=== PATIENT | male | born 1945 | race Caucasian/White ===

== ENCOUNTER 2018-05-01 01:50 | Inpatient (IN) ==
[2018-05-01] MEDS ORDERED: Acetaminophen 325 MG Tablet PO PRN (10:15)
[2018-05-01] MEDS ORDERED: Enoxaparin Inj 30 MG/0.3 ML Syringe SQ SCH (10:15)
[2018-05-01 10:42] LABS: Hematocrit 42.2 % (39.0-51.0); Hemoglobin 14.7 gm/dL (13.0-17.0); Mean Corpuscular HGB Conc 34.9 % (32.0-36.0); Mean Corpuscular Volume 91.9 fL (80.0-100.0); Mean Platelet Volume 8.5 fL (7.0-11.0); Platelet Count 158 th/mm3 (150-450); Red Blood Count 4.59 mil/mm3 (4.50-5.90); Red Cell Distribution Width 13.6 % (11.6-17.2); White Blood Count 7.5 th/mm3 (4.0-11.0)
[2018-05-01 11:07] LABS: Calcium 7.9 mg/dL (8.5-10.1); Carbon Dioxide 25.7 meq/L (21.0-32.0); Potassium 3.6 meq/L (3.5-5.1)
[2018-05-01 11:23] LABS: Troponin I 1.12 ng/mL (0.02-0.05)
--- NOTE | 2018-05-01 12:00 | P.HPIM ---
History of Present Illness Primary Care Physician: Tasneem Dumont Chief Complaint: chest pain History of Present Illness: This is a 73/M with h/o DM, hyperlipidemia who presented to the ED for chest pain. He was recently prescribed Diclofenac by his PCP which he filled yesterday. He took it prior to dinner. An hour after dinner, he started having lightheadedness, severe itching and started sweating profusely. He went to the ED, was given Benadryl. Workup was negative, symptoms resolved completely and hence patient was discharged. There was no note of chest pain at that point. Patient went home, watching TV in bed, around 11 pm, he started having pressure- like chest pain, substernal, radiating to the back between his shoulder blades, severe, about 8-9, lasted for about 2 hours, relieved by nitroglycerin given at the ED associated with pallor. No note of palpitations or SOB. Before going to the ED, he took his BP and it was 60/50. Presently, he denies any chest pain. 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 Of note, a month ago, he had a cardiac workup with what sounds to be EKG, nuclear stress test and a treadmill stress test which were all allegedly negative. Family Hx:Brother had a massive heart attack at early 50s and . Patient smokes 3-4 cigarettes since 14 yo. Review of Systems The All other pertinent systems were reviewed and are negative. [facility] - History History Provided By: Patient - Medical History Medical History: Medical History (Last Reviewed 05/01/18 @ 12:04 by Audie Toledo MD) Diabetes - Surgical History Surgical History: Surgical History (Last Updated 05/01/18 @ 12:03 by Audie Toledo MD) History of appendectomy History of knee surgery History of tonsillectomy No history of previous surgery - Tobacco History Second Hand Smoke Exposure: No Tobacco Use In Past 30 Days: Yes Smoking Status: Current some day smoker Tobacco Type: Cigarettes - Alcohol History How Often Do You Have a Drink Containing Alcohol: Never - Substance Use History Substance History: No History of Abuse - Travel History Recent Travel in the [facility] Within the Last 8 Weeks: No Recent Travel Out of the Country Within the Last 8 Weeks: No Medications and Allergies Active Medications: Active Medications Acetaminophen (Tylenol) 650 mg PO Q4H PRN PRN Reason: Temp > 100.4 Al Hydroxide/Mg Hydroxide (Milk Of Vasile Almeida) 30 ml PO Q12H PRN PRN Reason: Mild Constipation Enoxaparin Sodium (Lovenox Inj) 30 mg SQ Q24H TATYANA Last Admin: 05/01/18 10:46 Dose: 30 mg Ondansetron HCl (Zofran Inj) 4 mg IV.PUSH Q6H PRN PRN Reason: NAUSEA OR VOMITING Sennosides (Senokot) 17.2 mg PO Q12H PRN PRN Reason: Moderate Constipation Allergies Allergy/AdvReac Type Severity Reaction Status Date / Time No Known Allergies Allergy Unverified 04/30/18 21:14 Home Medications Medication Instructions Recorded Confirmed Type insulin asp prt-insulin aspart 25 unit SUB-Q BID 04/30/18 05/01/18 History [Novolog Mix 70-30 U-100 Insuln] lisinopril 5 mg PO DAILY 04/30/18 05/01/18 History simvastatin 20 mg PO QPM 04/30/18 05/01/18 History Exam Vital signs: Vital Signs 05/01/18 08:13 Temperature 98.3 F Pulse Rate 75 Respiratory Rate 16 Blood Pressure 121/69 Pulse Oximetry 94 L Intake & Output 04/30/18 05/01/18 05/01/18 18:59 06:59 18:59 Weight 125.191 kg Other: Date of Last Bowel Movement 04/30/18 Weight On Admission 125.191 kg Narrative: GENERAL: Not in acute distress, well-nourished. HEAD: Atraumatic. Normocephalic. No temporal or scalp tenderness. EYES: PERRL, full EOMs, no jaundice, nonicteric, pink conjunctivae without injection, moist mucosa ENT: Nose without bleeding, purulent drainage. NECK: Trachea midline, no mass, no obvious thyromegaly. CARDIOVASCULAR: Regular rate and rhythm without murmurs, gallops, or rubs. RESPIRATORY: Clear to auscultation with normal respiratory effort. Breath sounds equal bilaterally. No use of accessory muscles of respiration. GASTROINTESTINAL: Abdomen soft, normal bowel sounds, non-tender, nondistended. No hepato-splenomegaly or palpable mass. No guarding. TAWANDA and exam deferred. MUSCULOSKELETAL: Extremities without clubbing, cyanosis, or edema. No joint tendernes. No calf tenderness. Distal pulses intact, 2+ bilaterally. INTEGUMENTARY: Warm and dry, no rash of generalized distribution. NEUROLOGICAL: Awake, alert, oriented 3. No obvious cranial nerve deficits. Moves all 4 extremities, muscle strength testing 5 over 5. Motor and sensory grossly within normal limits.No focal neurologic deficits. Results - Labs CBC & Chem 7: 05/01/18 10:30 05/01/18 10:30 Labs: Short CBC 05/01/18 Range/Units 10:30 WBC 7.5 (4.0-11.0) th/mm3 Hgb 14.7 D (13.0-17.0) gm/dL Hct 42.2 (39.0-51.0) % Plt Count 158 D (150-450) th/mm3 BMP 05/01/18 10:30 Sodium 142 Potassium 3.6 Chloride 106 Carbon Dioxide 25.7 BUN 19 H Creatinine 1.01 Calcium 7.9 L D Cardiac Enzymes 05/01/18 Range/Units 10:30 Total Creatine Kinase 210 (39-308) U/L Troponin I 1.12 H* (0.02-0.05) ng/mL Caprini VTE Risk Assessment Caprini VTE Risk Assessment: Moderate/High Risk (score >= 2) Caprini Risk Assessment Model: Point Value = 1 Point Value = 2 Point Value = 3 Point Value = 5 Age 41-60 Minor surgery BMI > 25 kg/m2 Swollen legs Varicose veins or History of unexplained or recurrent spontaneous Oral contraceptives or hormone replacement Sepsis (< 1 month) Serious lung disease, including pneumonia (< 1 month) Abnormal pulmonary function Acute myocardial infarction Congestive heart failure (< 1 month) History of inflammatory bowel disease Medical patient at bed rest Age 61-74 Arthroscopic surgery Major open surgery (> 45 min) Laparoscopic surgery (> 45 min) Malignancy Confined to bed (> 72 hours) Immobilizing plaster cast Central venous access Age >= 75 History of VTE Family history of VTE Factor V Leiden Prothrombin [id number] Lupus anticoagulant Anticardiolipin antibodies Elevated serum homocysteine Heparin-induced thrombocytopenia Other congenital or acquired thrombophilia Stroke (< 1 month) Elective arthroplasty Hip, pelvis, or leg fracture Acute spinal cord injury (< 1 month) Prophylaxis Regimen: Total Risk Factor Score Risk Level Prophylaxis Regimen 0-1 Low Early ambulation 2 Moderate Order ONE of the following: *Sequential Compression Device (SCD) *Heparin 5000 units SQ BID 3-4 Higher Order ONE of the following medications: *Heparin 5000 units SQ TID *Enoxaparin/Lovenox 40 mg SQ daily (WT < 150 kg, CrCl > 30 mL/min) *Enoxaparin/Lovenox 30 mg SQ daily (WT < 150 kg, CrCl > 10-29 mL/min) *Enoxaparin/Lovenox 30 mg SQ BID (WT < 150 kg, CrCl > 30 mL/min) AND/OR *Sequential Compression Device (SCD) 5 or more Highest Order ONE of the following medications: *Heparin 5000 units SQ TID (Preferred with Epidurals) *Enoxaparin/Lovenox 40 mg SQ daily (WT < 150 kg, CrCl > 30 mL/min) *Enoxaparin/Lovenox 30 mg SQ daily (WT < 150 kg, CrCl > 10-29 mL/min) *Enoxaparin/Lovenox 30 mg SQ BID (WT < 150 kg, CrCl > 30 mL/min) AND *Sequential Compression Device (SCD) Assessment and Plan - Plan This is a 73-year-old male with history of diabetes mellitus and hyperlipidemia presenting with chest pain NSTEMI -chest pain sounds cardiac, first troponin is positive, EKG is unremarkable, no ischemic changes, SR. Start heparin drip, consult cardiology, start aspirin, restart statin, nitroglycerin as needed, morphine as needed, oxygen, n.p.o. for now, might need cardiac catheterization, NPO for now. Patient recently had a negative cardiac workup including a stress test and <?> Nuclear stress test. Serial troponin, serial EKG. Chest x-ray unremarkable. CTA negative for PE, showed coronary calcifications. Diabetes mellitus-sliding scale insulin for now while n.p.o., restart home insulin once eating, monitor. Dyslipidemia-restart statin Bilateral pulmonary nodules-repeat CT scan as outpatient in 6 months. Diclofenac allergy-resolved. ? Hypertension-restart lisinopril DVT prophylaxis: Heparin H&P: Quality - VTE Deep Vein Thrombosis/Pulmonary Embolism Present on Admission: No
[2018-05-01] MEDS ORDERED: Heparin Drip 25,000 UNIT/250 ML BAG IV.CONT PRN (12:15)
[2018-05-01] MEDS ORDERED: Heparin 10,000 UNITS/10 ML Vial (for IV use) IV.PUSH STA (12:15)
[2018-05-01] MEDS ORDERED: Dextrose 50% in Water 50 ML Vial IV.PUSH PRN (12:19)
[2018-05-01] MEDS ORDERED: Morphine Inj 4 MG/ML Vial IV.PUSH PRN (12:23)
[2018-05-01 13:59] LABS: Activated Partial Thrombo Time 22.9 sec (24.3-30.1); Prothrombin Time 10.3 sec (9.8-11.6)
[2018-05-01] MEDS: Lisinopril 5 MG Tablet PO SCH (14:07)
--- NOTE | 2018-05-01 15:36 | ECG ---
Date Performed: 05/01/2018 Time Performed: 10:52:02 PTAGE: 73 years EKG: Sinus rhythm NORMAL ECG Since PREVIOUS TRACING , no significant change noted PREVIOUS TRACIN05/01/2018 01.56 DOCTOR: Eliel Bonilla Interpretating Date/Time 05/01/2018 15:36:34
[2018-05-01 17:33] LABS: Hematocrit 43.3 % (39.0-51.0); Mean Corpuscular HGB Conc 34.6 % (32.0-36.0); Mean Corpuscular Hemoglobin 31.9 pg (27.0-34.0); Mean Corpuscular Volume 92.1 fL (80.0-100.0); Mean Platelet Volume 8.6 fL (7.0-11.0); Platelet Count 157 th/mm3 (150-450); Red Cell Distribution Width 13.7 % (11.6-17.2); White Blood Count 7.8 th/mm3 (4.0-11.0)
[2018-05-01] MEDS: Insulin NovoLOG Aspart Correctional Sugar Inj SQ SCH ×2 (18:31→21:52)
[2018-05-01 18:45] LABS: Troponin I 3.44 ng/mL (0.02-0.05)
[2018-05-02 05:27] LABS: Baso # (Auto) 0.1 th/mm3 (0.0-0.2); Baso % (Auto) 0.8 % (0.0-2.0); Eos # (Auto) 0.3 th/mm3 (0.0-0.4); Eos % (Auto) 5.1 % (0.0-4.0); Hematocrit 41.6 % (39.0-51.0); Hemoglobin 14.8 gm/dL (13.0-17.0); Lymph # (Auto) 1.1 th/mm3 (1.0-4.8); Lymph % (Auto) 16.1 % (9.0-44.0); Mean Corpuscular HGB Conc 35.6 % (32.0-36.0); Mean Corpuscular Hemoglobin 32.3 pg (27.0-34.0); Mean Corpuscular Volume 90.6 fL (80.0-100.0); Mean Platelet Volume 8.9 fL (7.0-11.0); Mono # (Auto) 0.5 th/mm3 (0.0-0.9); Mono % (Auto) 6.9 % (0.0-8.0); Neut # (Auto) 4.8 th/mm3 (1.8-7.7); Neut % (Auto) 71.1 % (16.0-70.0); Platelet Count 159 th/mm3 (150-450); Red Blood Count 4.59 mil/mm3 (4.50-5.90); Red Cell Distribution Width 13.5 % (11.6-17.2); White Blood Count 6.7 th/mm3 (4.0-11.0)
[2018-05-02 05:47] LABS: Calcium 8.2 mg/dL (8.5-10.1); Carbon Dioxide 25.4 meq/L (21.0-32.0); Potassium 3.7 meq/L (3.5-5.1)
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
[2018-05-02 06:09] LABS: Troponin I 3.88 ng/mL (0.02-0.05)
[2018-05-02] MEDS: Lisinopril 5 MG Tablet PO SCH (08:15)
[2018-05-02] MEDS: Insulin NovoLOG Aspart Correctional Sugar Inj SQ SCH ×4 (08:16→22:44)
--- NOTE | 2018-05-02 09:59 | P.PNIM ---
Subjective Interval history: Follow-up for chest pain No chest pain overnight, no palpitations. Also complaining of diarrhea which has been going on for the last 2 weeks, no recent antibiotic use. No abdominal pain, melena, hematochezia, nausea or vomiting. Physical Exam Vital signs: Vital Signs 05/01/18 12:00 05/01/18 17:25 05/01/18 20:00 Temperature 98.7 F 98.6 F 98.9 F Pulse Rate 85 89 82 Respiratory Rate 16 18 18 Blood Pressure 120/67 136/70 142/72 H Pulse Oximetry 93 L 93 L 93 L 05/01/18 20:30 05/01/18 23:29 05/02/18 00:10 Temperature 98.2 F Pulse Rate 78 83 82 Respiratory Rate 18 Blood Pressure 130/66 Pulse Oximetry 95 05/02/18 08:00 05/02/18 08:54 Temperature 98.4 F Pulse Rate 72 86 Respiratory Rate 18 Blood Pressure 122/66 Pulse Oximetry 93 L Intake & Output 05/01/18 05/02/18 05/02/18 18:59 06:59 18:59 Weight 128.2 kg Other: # Voids 2 Date of Last Bowel Movement 05/01/18 05/01/18 05/02/18 Weight On Admission 125.191 kg Narrative: GENERAL: Not in acute distress, well-nourished. CARDIOVASCULAR: Regular rate and rhythm without murmurs, gallops, or rubs. RESPIRATORY: Clear to auscultation with normal respiratory effort. Breath sounds equal bilaterally. No use of accessory muscles of respiration. GASTROINTESTINAL: Abdomen soft, normal bowel sounds, non-tender, nondistended. MUSCULOSKELETAL: Extremities without clubbing, cyanosis, or edema. NEUROLOGICAL: Awake, alert, oriented 3. No obvious cranial nerve deficits. Moves all 4 extremities, muscle strength testing 5 over 5. Motor and sensory grossly within normal limits.No focal neurologic deficits. Results - Labs CBC & Chem 7: 05/02/18 04:15 05/02/18 04:15 Laboratory Results - last 24 hr 05/01/18 05/01/18 05/01/18 10:30 10:30 13:30 WBC 7.5 RBC 4.59 Hgb 14.7 D Hct 42.2 MCV 91.9 MCH 32.0 MCHC 34.9 RDW 13.6 Plt Count 158 D MPV 8.5 Neut % (Auto) Lymph % (Auto) Drew % (Auto) Eos % (Auto) Baso % (Auto) Neut # (Auto) Lymph # (Auto) Drew # (Auto) Eos # (Auto) Baso # (Auto) WBC Differential Differential Comment PT INR APTT D-Dimer Quant (PE/DVT) 3.84 H Sodium 142 Potassium 3.6 Chloride 106 Carbon Dioxide 25.7 Anion Gap 10 BUN 19 H Creatinine 1.01 Estimated GFR 73 L POC Glucose Random Glucose 206 H Calcium 7.9 L D Total Creatine Kinase 210 Troponin I 1.12 H* Lipase 472 H 05/01/18 05/01/18 05/01/18 13:30 17:00 17:00 WBC 7.8 RBC 4.70 Hgb 15.0 Hct 43.3 MCV 92.1 MCH 31.9 MCHC 34.6 RDW 13.7 Plt Count 157 MPV 8.6 Neut % (Auto) Lymph % (Auto) Drew % (Auto) Eos % (Auto) Baso % (Auto) Neut # (Auto) Lymph # (Auto) Drew # (Auto) Eos # (Auto) Baso # (Auto) WBC Differential Differential Comment PT 10.3 INR 1.0 APTT 22.9 L D-Dimer Quant (PE/DVT) Sodium Potassium Chloride Carbon Dioxide Anion Gap BUN Creatinine Estimated GFR POC Glucose Random Glucose Calcium Total Creatine Kinase 301 Troponin I 3.44 H* Lipase 05/01/18 05/01/18 05/01/18 18:19 19:00 21:46 WBC RBC Hgb Hct MCV MCH MCHC RDW Plt Count MPV Neut % (Auto) Lymph % (Auto) Drew % (Auto) Eos % (Auto) Baso % (Auto) Neut # (Auto) Lymph # (Auto) Drew # (Auto) Eos # (Auto) Baso # (Auto) WBC Differential Differential Comment PT INR APTT 26.0 D-Dimer Quant (PE/DVT) Sodium Potassium Chloride Carbon Dioxide Anion Gap BUN Creatinine Estimated GFR POC Glucose 315 H 271 H Random Glucose Calcium Total Creatine Kinase Troponin I Lipase 05/02/18 05/02/18 05/02/18 04:15 04:15 07:54 WBC 6.7 RBC 4.59 Hgb 14.8 Hct 41.6 MCV 90.6 MCH 32.3 MCHC 35.6 RDW 13.5 Plt Count 159 MPV 8.9 Neut % (Auto) 71.1 H Lymph % (Auto) 16.1 Drew % (Auto) 6.9 Eos % (Auto) 5.1 H Baso % (Auto) 0.8 Neut # (Auto) 4.8 Lymph # (Auto) 1.1 Drew # (Auto) 0.5 Eos # (Auto) 0.3 Baso # (Auto) 0.1 WBC Differential . Differential Comment Auto diff final PT INR APTT D-Dimer Quant (PE/DVT) Sodium 143 Potassium 3.7 Chloride 107 Carbon Dioxide 25.4 Anion Gap 11 BUN 13 Creatinine 0.91 Estimated GFR 82 L POC Glucose 303 H Random Glucose 236 H Calcium 8.2 L Total Creatine Kinase Troponin I 3.88 H* Lipase Microbiology 05/01/18 18:15 Stool Stool Occult Blood (BARNEY) - Final Hemoccult negative Assessment and Plan - Plan This is a 73-year-old male with history of diabetes mellitus and hyperlipidemia presenting with chest pain NSTEMI -chest pain sounds cardiac, troponin peaked at 3.88. EKG is unremarkable , no ischemic changes, SR. continue heparin drip, discussed with Dr. Matehws yesterday. Continue aspirin, restart statin, nitroglycerin as needed, morphine as needed, oxygen, for cardiac catheterization today. Chest x-ray unremarkable. CTA negative for PE, showed coronary calcifications. Start Coreg per cardiology, discussed with Dr. Mathews. Diabetes mellitus-sliding scale insulin for now while n.p.o., restart home insulin after procedure. Dyslipidemia-continue statin Bilateral pulmonary nodules-repeat CT scan as outpatient in 6 months. Diarrhea -diarrhea for 2 weeks, no abdominal pain, no leukocytosis, no hematochezia or melena, C diff pending. Doubt C. difficile, check ova and parasites. Diclofenac allergy-resolved. ? Hypertension- lisinopril DVT prophylaxis: Heparin
[2018-05-02] MEDS ORDERED: Heparin/NS PF Inj 500 ML ONE (10:02)
[2018-05-02] MEDS ORDERED: fentaNYL Citrate Inj 100 MCG/2 ML Ampul ONE ×2 (10:25→11:04)
[2018-05-02] MEDS ORDERED: Tirofiban Inj 12,500 MCG/250 ML PLAST..BAG ONE (11:07)
--- NOTE | 2018-05-02 11:17 | CATHPROC ---
[place] HIS Report Study Information Study Number Admission Scheduled Start Study Start [id number] May 01 2018 7:55AM 05/02/2018 May 02 2018 9:55AM [place] [facility] Cardiac Catheterization Admit Source Facility Department Emergency department [facility] - Chief Information Officer Physician and Clinical Staff Initial Ajay [place] Bailiff Amaury Mccormick,SCOT[place] Bailiff Yaa Munson,SCOTTY Recorder Khalida Tovar,RT(R) Scrub Otilio Cortes RCIS(BS) Procedures Performed Procedure Location (Site) Vessel Name Coronary Angiograms LCA Left Coronary Coronary Angiograms RCA Right Coronary L Heart Cath PTCA RCA Dist Right Coronary PTCA ADD ON'S Stent RCA Dist Right Coronary Wire insertion Fem Art (right) Femoral Art Equipment Time Mine Inspector Description Size Mfg Part Number Used/Scraped [id number] 10:49 [employer] WIRE, ASAHI GRANDSLAM 180CM 180CM Used *[id number] 62914-08 10:41 [employer] WIRE, ASAHI PROWATER 180CM 180CM Used *[id number] TRANSDUCER, TRUWAVE [id number] 10:26 DOMINGUEZ MARSHALL * Used W/STOCKCOCK *[id number] 538-420 *[id number] 538-422 *[id number] 538-424 *[id number] [id number] *2765984 538-421 *[id number] 538-453S *[id number] 10:26 [employer] BLANKET,WARM AIR CCL * Used *[id number] 10:26 [employer] PACK, CCL CUSTOM * Used *[id number] 10:26 [employer] PACER PEN, SKIN DUAL W/ RULER * Used *[id number] 10:49 [employer] BALLOON, 3.0 X 10MM EUPHORA 10MM Used *[id number] BALLOON, 3.5 X 20MM NC [id number] 10:57 MEDTRONIC 20MM Used EUPHORA *[id number] 10:45 [employer]TR[employer]IC STENT, 3.5 18 INTEGRITY 3.5 18 Used *[id number] [id number] 10:42 Zaask 30 HEVER INDEFLATOR Used *[id number] 10:33 [email or web address] MEDICAL SHEATH, FR6.5 PRELUDE 11CM FR 6.5 038ACT Used *[id number] 10:26 [employer] MEDICAL WIRE, 3MMJ .035 180CM 180CM Used *[id number] 10:26 NAMIC MANIFOLD, 4 PORT * Used *[id number] 10:26 NYCOMED OMNIPAQUE, 350 MG, 150ML 150ML [id number] Used 10:42 NYCOMED OMNIPAQUE, 350 MG, 50ML 50ML [id number] Used [id number] 10:26 TERUMO MEDICAL SHEATH, FR4 TERUMO (10CM) FR 4 Used *[id number] Equipment Model, Serial, Lot Number and Expiration Data Description Model Number Serial Number Lot Number Expiration Date BALLOON, 3.5 X 20MM MT [id number] 10-23-2019 EUPHORA STENT, 3.5 18 INTEGRITY [id number] 06-16-2019 History: Current Medications Medication Dosage/Unit Route Frequency Last Date/Time Taken Statins (any) LISINOPRIL Insulin HEPARIN LOVENOX History: Allergies Allergy Reaction No Known Allergies History: Risk Factors Family History of Hypertension Dyslipidemia Previous CT Previous Heart Failure Premature CAD Yes Yes No No No Prior Valve Prior PCI Prior CABG Surgery No No No Cerebrovascular Peripheral Artery Chronic Lung On Dialysis Diabetes Diabetes Therapy Disease Disease Disease No No No No Yes Oral History: Stress Tests Stress or Imaging Studies Performed No History: Other Current Smoker No Labs Hgb (g/dl) Hct (%) WBC (l/cumm) Platelets (thousands) 11.60-17.00 35.00-51.00 4.00-11.00 150.00-450.00 14.7 42.2 7.5 158 Na (meq/l) K (meq/l) Cl (meq/l) CO2 (mmol/L) Ca (mg/dl) 136.00-145.00 3.50-5.10 98.00-107.00 21.00-32.00 8.50-10.10 142 3.6 106 25.7 7.9 Troponin I (ng/ml) CPK (u/l) CPK-MB (ng/ML) 0.02-0.05 26.00-308.00 0.50-3.60 1.12 210 Not Drawn Medication Medication Total Dose (Bolus/Oral) Medication Total Dosage/Unit 1% XYLOCAINE 20 mL AGGRASTAT BOLUS 64 meq/kg EFFIENT 60 mg FENTANYL 75 mcg HEPARIN 57313 units VERSED 1 mg Medications (Bolus/Oral) Medication Time Given Dosage/Unit Administered By Reason 1% XYLOCAINE 05/02/2018 10:25:46 AM 20 mL Ajay Mathews 20 mL 1% XYLOCAINE given in lab by Ajay Mathews in Right Groin via Subcutaneous. VERSED 05/02/2018 10:27:03 AM 1 mg Yaa Munson 1 mg VERSED given in lab by Yaa Munson RN via Peripheral IV. FENTANYL 05/02/2018 10:27:09 AM 50 mcg Yaa Munson 50 mcg FENTANYL given in lab by Yaa Munson RN via Peripheral IV. HEPARIN 05/02/2018 10:43:17 AM 9000 units Amaury Mccormick 9000 units HEPARIN given in lab by Amaury Mccormick RN via Peripheral IV. FENTANYL 05/02/2018 11:03:56 AM 25 mcg Yaa Munson 25 mcg FENTANYL given in lab by Yaa Munson RN via Peripheral IV. HEPARIN 05/02/2018 11:07:45 AM 3000 units Amaury Mccormick 3000 units HEPARIN given in lab by Amaury Mccormick RN via Peripheral IV. AGGRASTAT BOLUS 05/02/2018 11:10:10 AM 64 meq/kg Yaa Munson 64 meq/kg AGGRASTAT BOLUS given in lab by Yaa Munson RN via Peripheral IV. Amount given = 8204.8 meq. EFFIENT 05/02/2018 11:11:17 AM 60 mg Yaa Munson 60 mg EFFIENT given in lab by Yaa Munson RN via Oral. Medication (Drip) Medication Time Given Dosage/Unit Concentration/Unit Diluent (ml) Solution AGGRASTAT DRIP 05/02/2018 11:10:14 AM 0.15 mcg/kg/min 12.5 mg 250 NaCl .9 0.15 mcg/kg/min AGGRASTAT DRIP given in lab by Yaa Munson RN via Peripheral IV. Pump/Drip Flow = 23 ml/hr using NaCl .9 with a concentration of 12.5 mg in 250 ml. IV Solutions 05/02/2018 10:10:23 AM 0 mL (IV) 500 NaCl .9 Patient arrived on IV Solutions in Left Antecubital via Peripheral IV. Pump/Drip Flow = 20 ml/hr usin g NaCl .9. Initial Case Assessment Cardiovascular HR Rhythm Chest Pain 80 reg 0 Edema Present Skin color Skin None Normal Warm Circulatory - Right Pulses Dorsalis Pedis Femoral 1 2 Scale (0,1,2,3,4,d) Circulatory - Left Pulses Dorsalis Pedis Femoral 1 2 Scale (0,1,2,3,4,d) Circulatory - Lower Extremities Color Lower Right Color Lower Left Normal Normal Neurological State Oriented to time-place- Alert Moves all extremities person Respiration - General Respiration Rate SpO2 (%) O2 (lpm) (B/min) 26 94 0 Final Case Assessment Cardiovascular HR Rhythm NIBP Chest Pain 80 reg 174/89 0 Edema Present Skin color Skin None Normal Warm Circulatory - Right Pulses Dorsalis Pedis Femoral 1 2 Scale (0,1,2,3,4,d) Circulatory - Left Pulses Dorsalis Pedis Femoral 1 2 Scale (0,1,2,3,4,d) Circulatory - Lower Extremities Color Lower Right Color Lower Left Normal Normal Neurological State Oriented to time-place- Alert Moves all extremities person Respiration - General Respiration Rate SpO2 (%) (B/min) 11 94 Chronological Log Time Study Chronological Log 10:10:05 Patient Name, D.O.B, / Armband Verified By R.N. 10:10:14 Consent signed by the physician and the patient and verified by the Chief Information Officer staff. 10:10:15 Pre-op and post- op instructions given; patient acknowledges understanding of instructions. 10:10:16 Verbal Stimulation=2 Physical Stimulation=2 Airway=2 Respiration=2 TOTAL=8. (0=absent, 1=li mited, 2=present) 10:10:17 Patient has been NPO for More than 6Hrs. 10:10:18 Skin Breakdown-none 10:10:21 A # 20 IV was noted in the Antecubital (left). Grade = 0 10:10:23 Patient arrived on IV Solutions in Left Antecubital via Peripheral IV. Pump/Drip Flow = 20 ml/hr using NaCl .9. 10:10:23 History and physical on the chart or being dictated. Assessment: Initial Case, HR=80 BPM, Rhythm=reg, Chest Pain=0, Edema=None, Color=Normal, Skin = Warm Right Pulses: Boaz Ped=1, Femoral=2 Left Pulses: Boaz Ped=1, Femoral=2 10:10:24 Lower Right Extremities: Color=Normal Lower Left Extremities: Color=Normal Neurological: State=Alert, Ox3, SANDOVAL Respiration: Resp=26 B/min, SpO2=94 %, O2=0 lpm Vitals capture started with the following parameters, Patient=Adult, Interval=3 min, Initial Pr giwhtg=302 mmHg, 10:18:13 Deflation Rate=5 mmHg, Cuff placed on Left Arm 10:18:54 HR=83 bpm, RHVX=861/87 mmhg, SpO2=94.0 %, Resp=21 B/min, Pain=0, Darnell=10, Casillas=2 10:21:54 HR=76 bpm, SBLJ=837/86 mmhg, SpO2=94.0 %, Resp=31 B/min, Pain=0, Darnell=10, Casillas=2 10:22:54 MD arrived. 10:24:05 Pressure channel 1 zeroed. 10:24:11 Reference ECG taken Time Out. Correct patient, correct procedure, correct physician, labs, allergies, and equipment verified with catholic priest 10:24:54 team present. Fire risk assesment completed (see hard stop sheet for coding). Time Out Conc urred by MD and individual staff in procedure. 10:24:57 HR=81 bpm, BDOH=059/83 mmhg, SpO2=94.0 %, Resp=22 B/min 10:25:38 Case Start 10:25:40 Verbal Stimulation=2 Physical Stimulation=2 Airway=2 Respiration=2 TOTAL=8. (0=absent, 1=li mited, 2=present) 10:25:46 20 mL 1% XYLOCAINE given in lab by Ajay Mathews in Right Groin via Subcutaneous. 10:27:03 1 mg VERSED given in lab by Yaa Musnon, SCOTTY via Peripheral IV. 10:27:09 50 mcg FENTANYL given in lab by Yaa Munson, SCOTTY via Peripheral IV. 10:27:15 Access site was Right Femoral Artery. 10:27:19 A wire was inserted via Fem Art (right). 10:27:21 A SHEATH, FR4 TERUMO (10CM) FR 4 was advanced into the Fem Art (right) using the Percutaneo us technique. 10:27:57 HR=77 bpm, HZXZ=417/75 mmhg, SpO2=93.0 %, Resp=27 B/min, Pain=0, Darnell=10, Casillas=2 Recorded Pressure: Ao, HR=84, Condition=Condition 1 10:30:02 (Aorta) Ao 118/69/91 10:30:31 The RCA was injected and visualized at various angles. OMNIPAQUE, 350 MG, 150ML 150ML used . 10:30:55 HR=80 bpm, IGHB=486/74 mmhg, SpO2=89.0 %, Resp=26 B/min, Pain=0, Darnell=10, Casillas=2 After removing the current catheter a JL 6.0 INFINITI CATHETER FR 4 was advanced over a WIRE, 3 MMJ .035 180CM 10:31:03 180CM. 10:33:24 The LCA was injected and visualized at various angles. OMNIPAQUE, 350 MG, 150ML 150ML used . 10:33:57 HR=84 bpm, IAVT=227/75 mmhg, SpO2=92.0 %, Resp=21 B/min, Pain=0, Darnell=10, Casillas=2 After removing the current catheter a JL 5.0 INFINITI CATHETER FR 4 was advanced over a WIRE, 3 MMJ .035 180CM 10:34:01 180CM. 10:34:56 The LCA was injected and visualized at various angles. OMNIPAQUE, 350 MG, 150ML 150ML used . 10:36:55 HR=85 bpm, PREF=465/82 mmhg, SpO2=91.0 %, Resp=19 B/min, Pain=0, Darnell=10, Casillas=2 After removing the current catheter a PIGTAIL ANG. INFINITI CATHETER FR 4 was advanced over a W ROBE, 3MMJ .035 10:37:25 180CM 180CM. Recorded Pressure: LV, HR=92, Condition=Condition 1 10:38:44 (Left Ventricle) LV 120/8/15 Recorded Pressure: LV, Ao, HR=93, Condition=Condition 1 10:39:19 (Left Ventricle) LV 78/4/5, (Aorta) Ao 97/48/72 10:40:00 HR=85 bpm, LEMT=321/81 mmhg, SpO2=91.0 %, Resp=24 B/min, Pain=0, Darnell=10, Casillas=2 10:40:05 Activated Clotting Time Drawn A SHEATH, FR6.5 PRELUDE 11CM FR 6.5 was exchanged in the Fem Art (right). This was necessary in order to 10:41:11 accomodate a larger catheter. A JR 4.0 GUIDE CATHETER FR 6 was advanced over a wire. OMNIPAQUE, 350 MG, 150ML 150ML was used for 10:41:23 injections. 10:41:51 A WIRE, ASAHI PROWATER 180CM 180CM was inserted via Fem Art (right). 10:41:57 OMNIPAQUE, 350 MG, 50ML 50ML and 30 HEVER INDEFLATOR added. 10:42:12 ACT (Normal Range 90-180) = 84 10:43:00 HR=83 bpm, UPBG=982/79 mmhg, SpO2=92.0 %, Resp=23 B/min, Pain=0, Darnell=10, Casillas=2 10:43:17 9000 units HEPARIN given in lab by Amaury Mccormick RN via Peripheral IV. 10:44:32 Interventional wire has crossed the lesion An STENT, 3.5 18 INTEGRITY 3.5 18 Bare Metal Stent was inserted through a JR 4.0 GUIDE CATHETER FR 6 over a 10:45:25 WIRE, ASAHI PROWATER 180CM 180CM. 10:45:58 HR=80 bpm, LEVV=037/74 mmhg, SpO2=91.0 %, Resp=24 B/min, Pain=0, Darnell=10, Casillas=2 10:48:19 Stent not deployed. Stent removed and intact. 10:48:58 HR=79 bpm, ENWE=637/72 mmhg, SpO2=93.0 %, Resp=19 B/min, Pain=0, Darnell=10, Casillas=2 10:49:12 A WIRE, ASAHI GRANDSLAM 180CM 180CM was inserted via Fem Art (right). 10:50:30 A BALLOON, 3.0 X 10MM EUPHORA 10MM was inserted over WIRE, ASAHI PROWATER 180CM 180CM via t he RCA Dist. A BALLOON, 3.0 X 10MM EUPHORA 10MM over a WIRE, ASAHI PROWATER 180CM 180CM in the RCA Dist was inflated 10:51:24 using a 30 HEVER INDEFLATOR at 16 hever for 20 sec. 10:51:57 HR=80 bpm, NDHD=477/83 mmhg, SpO2=92.0 %, Resp=19 B/min, Pain=0, Darnell=10, Casillas=2 10:52:19 Balloon Removed. An STENT, 3.5 18 INTEGRITY 3.5 18 Bare Metal Stent was inserted through a JR 4.0 GUIDE CATHETER FR 6 over a 10:53:45 WIRE, ASAHI PROWATER 180CM 180CM. 10:55:01 HR=78 bpm, TCUZ=930/85 mmhg, SpO2=94.0 %, Resp=16 B/min, Pain=0, Darnell=10, Casillas=2 10:55:42 Stent not deployed. Stent removed and intact. A BALLOON, 3.5 X 20MM NC EUPHORA 20MM was inserted over WIRE, ASAHI PROWATER 180CM 180CM via th e RCA 10:56:51 Dist. A BALLOON, 3.5 X 20MM NC EUPHORA 20MM over a WIRE, ASAHI PROWATER 180CM 180CM in the RCA Dist w as 10:57:35 inflated using a 30 HEVER INDEFLATOR at 20 hever for 30 sec. 10:58:05 HR=75 bpm, ADJY=525/66 mmhg, SpO2=93.0 %, Resp=15 B/min, Pain=0, Darnell=10, Casillas=2 11:00:53 Balloon Removed. 11:00:59 HR=79 bpm, AFQP=190/87 mmhg, SpO2=93.0 %, Resp=14 B/min, Pain=0, Darnell=10, Casillas=2 11:02:44 Activated Clotting Time Drawn An STENT, 3.5 18 INTEGRITY 3.5 18 Bare Metal Stent was inserted through a JR 4.0 GUIDE CATHETER FR 6 over a 11:03:53 WIRE, ASAHI PROWATER 180CM 180CM. 11:03:56 25 mcg FENTANYL given in lab by Yaa Munson RN via Peripheral IV. 11:04:02 HR=74 bpm, IXOW=684/84 mmhg, SpO2=94.0 %, Resp=17 B/min, Pain=0, Darnell=10, Casillas=2 A STENT, 3.5 18 INTEGRITY 3.5 18 was deployed using a 30 HEVER INDEFLATOR at 16 atmospheres for 1 5 seconds in 11:04:47 the RCA Dist. 11:05:27 Delivery device removed 11:05:33 grand slam Wire removed 11:06:09 prowater Wire removed 11:06:18 Catheter was removed 11:06:36 ACT (Normal Range 90-180) = 206 11:07:02 HR=79 bpm, ATIS=806/89 mmhg, SpO2=94.0 %, Resp=12 B/min, Pain=0, Darnell=10, Casillas=2 11:07:45 3000 units HEPARIN given in lab by Amaury Mccormick, RN via Peripheral IV. 11:08:11 Case End (Physician broke scrub) Assessment: Final Case, HR=80 BPM, Rhythm=reg, OKNO=995/89 mmhg, Chest Pain=0, Edema=None, Col or=Normal, Skin = Warm Right Pulses: Boaz Ped=1, Femoral=2 Left Pulses: Boaz Ped=1, Femoral=2 11:08:15 Lower Right Extremities: Color=Normal Lower Left Extremities: Color=Normal Neurological: State=Alert, Ox3, SANDOVAL Respiration: Resp=11 B/min, SpO2=94 % 11:08:57 Catheter(s) removed without difficulty 11:09:07 No case complications noted. 11:09:09 Cine recording checked. 11:09:34 Bedside Report will be given. 11:09:38 A Left Heart Cath was performed. 11:09:41 Clinical correlaton risk stratification. 11:10:04 HR=80 bpm, NNLG=158/74 mmhg, SpO2=93.0 %, Resp=23 B/min, Pain=0, Darnell=10, Casillas=2 11:10:10 64 meq/kg AGGRASTAT BOLUS given in lab by Yaa Munson, SCOTTY via Peripheral IV. Amount giv en = 8204.8 meq. 0.15 mcg/kg/min AGGRASTAT DRIP given in lab by Yaa Munson, SCOTTY via Peripheral IV. Pump/Drip Flow = 23 ml/hr 11:10:14 using NaCl .9 with a concentration of 12.5 mg in 250 ml. 11:11:16 In the Fem Art (right) the SHEATH, FR6.5 PRELUDE 11CM FR 6.[address] by Sebastian, Otilio, PRESS TOOL MAKER(BS). 11:11:17 60 mg EFFIENT given in lab by Yaa Munson, SCOTTY via Oral. 11:13:00 HR=78 bpm, OQOT=186/88 mmhg, SpO2=93.0 %, Resp=21 B/min, Pain=0, Darnell=10, Casillas=2 End Study - Contrast Media Used In Study Contrast Total Opened (mL) Total Used (mL) Total Wasted (mL) Omnipaque 125 125 0 End Study - Radiation Exposure Fluoro Time (minutes) 18.6 End Study - Patient Disposition Complications Transferred To Interventional Outcome No Regular Bed successful
[2018-05-02] MEDS ORDERED: TIROFIBAN BOLUS IV.PUSH ONE (11:45)
[2018-05-02] MEDS ORDERED: Misc Info for Pharmacy OTHER STA (11:45)
[2018-05-02] MEDS ORDERED: Tirofiban Inj 12,500 MCG/250 ML PLAST..BAG IV.CONT SCH (12:00)
[2018-05-02] MEDS ORDERED: Aspirin 325 MG Tablet PO SCH (12:14)
--- NOTE | 2018-05-02 16:12 | MR ---
cc: Ajay Mathews MD DATE: 05/02/2018 INDICATIONS FOR PROCEDURE: Non-STEMI coronary artery disease, tobacco use, multiple cardiac risk factors. The patient was brought to the cardiac catheterization laboratory, prepped and draped in the usual sterile fashion. Then, 10 mL of 1% lidocaine was used to locally anesthetize the right common femoral vein and a 4-Vincentian sheath was placed in the right common femoral artery. Note, there was some difficulty traversing the right common iliac artery. I was able to easily pass this by steering the diagnostic 4-Vincentian JR4 catheter there after all catheters exchanges were done over a 0.035 J-tip wire. I used a 4-Vincentian JR4, JL5, and a pigtail catheter to perform a left main coronary artery angiography and left ventriculography. FINDINGS: I was not able to enter across the aortic valve with a JR4 catheter. Therefore, right coronary artery was imaged first. This was a large dominant vessel, ectatic in the proximal mid segment, with relative stenosis up to 20-30%. Mid segment had 30-40% disease, distal segment had 50% disease. There was fibrocalcification throughout the length of the right coronary artery, as well as the ostial proximal right PDA. The right PDA was a larger reference vessel diameter of 3.5 mm, with sequential 95% stenosis in the ostial proximal segment. The PDA reached the apex. PATRICK showed relatively smaller vessel, 2.75 mm reference vessel diameter. No significant obstructive disease. Left main coronary artery has no significant disease angiographically. There is fibrocalcification seen fluoroscopically. The LAD has bvac-re-tolumqwy disease in the mid segment up to 40% angiographically. First diagonal artery is a small to medium-size vessel, 2.25-2.5 mm in reference vessel diameter. No significant disease angiographically. Second diagonal artery reference vessel diameter of 3 mm with an ostial 40% stenosis. The mid LAD at the bifurcation with this diagonal vessel has mild disease up to 10% angiographically. The distal LAD has a 60-70% stenosis, the left circumflex vessel has a 60% stenosis just proximal to a medium-sized obtuse marginal vessel. The tortuous vessel was 110-120 degree angulation off the left main. First obtuse marginal vessel is a small 0.5-mm vessel. No significant disease angiographically. Second obtuse marginal vessel comes off the mid AV groove of left circ, medium-sized vessel 2.5-2.75 mm. No significant disease angiographically. Third obtuse marginal vessel medium-sized vessel, 2.5-mm reference vessel diameter. No significant disease. Patient came to the photographic laboratory technician on a heparin drip. Initial ACT 108, 70 units/kg of heparin were given. ACT was 206. An additional 3000 units of heparin was given. Final ACT pending at time of dictation. A 6-Vincentian sheath was exchanged for a 4-Vincentian sheath. A 6-Vincentian JR4 guide and 0.014 Prowater guidewire were used to cross the ostial proximal right PDA lesions. I was able to deliver a 3518 Integrity stent across the mid right coronary artery with difficulty. It required deep seating of the right coronary artery guide catheter; however, once the stent reached the lesion site due to stenosis severity, I could not cross the lesion; therefore, due to the difficulty in passing the stent through the mid segment of the vessel, I added a 0.014 Grand Slam myra wire and placed it into the distal right PDA. I then predilated the ostial right PDA lesion with a 3010 Compliant Euphora 1 placed 10 atmospheres for 20 seconds. I then delivered the 3518 Integrity stent without difficulty across the mid area of heavy calcification, but again was not able to cross the ostial PDA lesion due to vessel stenosis severity and/or presence of calcification. I therefore used a 3520 noncompliant E4 balloon to further predilate the ostial and proximal lesions at nominal pressure, 12 atmospheres. There is still very significant waste in the balloon at the ostial lesion. Even up to 18 atmospheres and 19 atmospheres, there was still significant waste. Finally, at 20 atmospheres, which is the balloon rated burst, the stenotic area was resolved. I then was able to deliver the 3518 Integrity stent to the lesion site, but it was still difficult to deliver the stent. He had to deep seat the guide catheter. I was able to deliver the stent at the proper location. I removed the 0.014 Grand Slam myra wire and deploy the stent with inflation at 16 atmospheres for 20 seconds. The stenoses went from 90-95% to 0% with VINCENZO-3 flow. There is no compromise of the ostial right PATRICK and there was no stenosis at the ostium of the right PDA, suggesting that the stent was placed optimally. CONCLUSION: 1. Non-ST elevation myocardial infarction culprit sequential 90% to 95% heavily calcified noncompliant lesions in the ostial proximal right PDA as detailed above; otherwise, moderate to severe 3-vessel coronary artery disease in the right dominant system as detailed above. 2. Heavy fibrocalcification of the proximal coronary arteries as detailed above. 3. Preserved left ventricular systolic function, ejection fraction 55%. 4. Successful femoral stent of the ostial proximal right PDA from 90-95% to 0% with VINCENZO-3 flow. 5. Recommend Effient 60 mg p.o. load at 10 mg daily for 12-15 months, aspirin 162 mg daily, and Aggrastat drip. 6. Strongly recommend smoking cessation. I have strongly advised the patient to stop smoking multiple times. 7. We will check fasting lipids, , guidelines and start beta aristeo and MARTHA inhibitors hemodynamically and clinically tolerated. MD MARK Alarcon/pw/do , 11:17 AM , 11:31 AM
[2018-05-03 04:18] LABS: Baso % (Auto) 0.4 % (0.0-2.0); Eos # (Auto) 0.3 th/mm3 (0.0-0.4); Eos % (Auto) 3.1 % (0.0-4.0); Hematocrit 39.1 % (39.0-51.0); Hemoglobin 13.5 gm/dL (13.0-17.0); Lymph # (Auto) 1.4 th/mm3 (1.0-4.8); Lymph % (Auto) 16.4 % (9.0-44.0); Mean Corpuscular HGB Conc 34.5 % (32.0-36.0); Mean Corpuscular Hemoglobin 31.6 pg (27.0-34.0); Mean Corpuscular Volume 91.6 fL (80.0-100.0); Mean Platelet Volume 8.2 fL (7.0-11.0); Mono # (Auto) 0.8 th/mm3 (0.0-0.9); Mono % (Auto) 8.9 % (0.0-8.0); Neut # (Auto) 6.1 th/mm3 (1.8-7.7); Neut % (Auto) 71.2 % (16.0-70.0); Platelet Count 187 th/mm3 (150-450); Red Blood Count 4.27 mil/mm3 (4.50-5.90); Red Cell Distribution Width 13.4 % (11.6-17.2); White Blood Count 8.6 th/mm3 (4.0-11.0)
[2018-05-03 04:40] LABS: Calcium 8.2 mg/dL (8.5-10.1); Potassium 3.4 meq/L (3.5-5.1)
[2018-05-03 04:43] LABS: Chol/HDL Ratio 4.04 Ratio; HDL Cholesterol 29.4 mg/dL (40.0-60.0)
[2018-05-03 07:33] VITALS: PULSE 82
[2018-05-03] MEDS: Lisinopril 5 MG Tablet PO SCH (08:25)
[2018-05-03] MEDS: Insulin NovoLOG Aspart Correctional Sugar Inj SQ SCH (08:25)
[2018-05-03 10:04] VITALS: RESP 18
--- NOTE | 2018-05-03 10:08 | P.PN ---
Subjective Interval history: Follow-up non-ST elevation [place] May 03, 2018-patient seen and examined, denies any chest pain, dizziness, shortness of breath. Physical Exam Vital signs: Vital Signs 05/02/18 11:48 05/02/18 12:00 05/02/18 13:00 Temperature 98.6 F Pulse Rate 64 78 Respiratory Rate 18 Blood Pressure 154/88 H Pulse Oximetry 93 L 93 L 05/02/18 14:00 05/02/18 15:00 05/02/18 16:00 Temperature 98.4 F Pulse Rate 84 83 74 Respiratory Rate 18 Blood Pressure 104/56 L Pulse Oximetry 93 L 05/02/18 17:00 05/02/18 18:00 05/02/18 19:00 Temperature Pulse Rate 82 82 88 Respiratory Rate Blood Pressure Pulse Oximetry 05/02/18 20:00 05/02/18 21:00 05/02/18 22:00 Temperature 99.4 F Pulse Rate 82 90 88 Respiratory Rate 22 Blood Pressure 124/63 Pulse Oximetry 96 05/02/18 23:00 05/02/18 23:16 05/03/18 00:00 Temperature 97.7 F Pulse Rate 80 92 H 82 Respiratory Rate 22 Blood Pressure 111/58 L Pulse Oximetry 94 L 05/03/18 01:00 05/03/18 02:00 05/03/18 03:00 Temperature Pulse Rate 78 76 82 Respiratory Rate Blood Pressure Pulse Oximetry 05/03/18 04:00 05/03/18 05:00 05/03/18 06:00 Temperature 98.3 F Pulse Rate 79 103 H 86 Respiratory Rate 20 Blood Pressure 87/62 L Pulse Oximetry 95 05/03/18 07:00 05/03/18 09:05 Temperature Pulse Rate 82 Respiratory Rate Blood Pressure Pulse Oximetry 95 Intake & Output 05/02/18 05/03/18 05/03/18 18:59 06:59 18:59 Intake Total 720 / 720 480 / 480 Output Total 400 / 400 925 / 925 Balance 320 / 320 -445 / -445 Weight 125.6 kg Intake: IV 240 / 240 Aggrastat Inj 12,500 mcg In 250 240 / 240 ml @ Per Protocol IV.CONT .Q0M [facility] Rx#:[id number] Oral 720 / 720 240 / 240 Output: Urine 400 / 400 925 / 925 Other: # Voids 2 Date of Last Bowel Movement 05/02/18 05/02/18 # Bowel Movements 2 Narrative: GENERAL: NAD SKIN: Warm and dry. HEAD: Normocephalic. EYES: No scleral icterus. No injection or drainage. NECK: Supple, trachea midline. No JVD or lymphadenopathy. CARDIOVASCULAR: Regular rate and rhythm without murmurs, gallops, or rubs. RESPIRATORY: Breath sounds equal bilaterally. No accessory muscle use. GASTROINTESTINAL: Abdomen soft, non-tender, nondistended. MUSCULOSKELETAL: No cyanosis, or edema. BACK: Nontender without obvious deformity. No CVA tenderness. Results - Labs CBC & Chem 7: 05/03/18 03:30 05/03/18 03:30 Laboratory Results - last 24 hr 05/02/18 05/02/18 05/02/18 08:40 12:49 19:17 WBC RBC Hgb Hct MCV MCH MCHC RDW Plt Count MPV Neut % (Auto) Lymph % (Auto) [place] % (Auto) Eos % (Auto) Baso % (Auto) Neut # (Auto) Lymph # (Auto) [place] # (Auto) Eos # (Auto) Baso # (Auto) WBC Differential Differential Comment Sodium Potassium Chloride Carbon Dioxide Anion Gap BUN Creatinine Estimated GFR POC Glucose 299 H 266 H Random Glucose Calcium Total Creatine Kinase Triglycerides Cholesterol LDL Cholesterol, Calc HDL Cholesterol Cholesterol/HDL Ratio St C. diff Tox Epid 027 Negative C. difficile Tox (PCR) Negative 05/02/18 05/03/18 05/03/18 22:39 03:30 03:30 WBC 8.6 RBC 4.27 L Hgb 13.5 Hct 39.1 MCV 91.6 MCH 31.6 MCHC 34.5 RDW 13.4 Plt Count 187 MPV 8.2 Neut % (Auto) 71.2 H Lymph % (Auto) 16.4 [place] % (Auto) 8.9 H Eos % (Auto) 3.1 Baso % (Auto) 0.4 Neut # (Auto) 6.1 Lymph # (Auto) 1.4 [place] # (Auto) 0.8 Eos # (Auto) 0.3 Baso # (Auto) 0.0 WBC Differential . Differential Comment Auto diff final Sodium 139 Potassium 3.4 L Chloride 103 Carbon Dioxide 27.0 Anion Gap 9 BUN 15 Creatinine 1.00 Estimated GFR 73 L POC Glucose 278 H Random Glucose 290 H Calcium 8.2 L Total Creatine Kinase 101 Triglycerides 333 H Cholesterol 119 L LDL Cholesterol, Calc 23 HDL Cholesterol 29.4 L Cholesterol/HDL Ratio 4.04 St C. diff Tox Epid 027 C. difficile Tox (PCR) 05/03/18 08:21 WBC RBC Hgb Hct MCV MCH MCHC RDW Plt Count MPV Neut % (Auto) Lymph % (Auto) [place] % (Auto) Eos % (Auto) Baso % (Auto) Neut # (Auto) Lymph # (Auto) [place] # (Auto) Eos # (Auto) Baso # (Auto) WBC Differential Differential Comment Sodium Potassium Chloride Carbon Dioxide Anion Gap BUN Creatinine Estimated GFR POC Glucose 327 H Random Glucose Calcium Total Creatine Kinase Triglycerides Cholesterol LDL Cholesterol, Calc HDL Cholesterol Cholesterol/HDL Ratio St C. diff Tox Epid 027 C. difficile Tox (PCR) Microbiology 05/02/18 08:40 Stool Stool for WBCs - Final No WBC's seen - Procedures Left heart catheterization with stent placement Assessment and Plan - Assessment (1) NSTEMI (non-ST elevated myocardial infarction) Code(s): I21.4 - Non-ST elevation (NSTEMI) myocardial infarction Status: Acute - Plan 73-year-old man with NSTEMI. CTA negative for PE, showed coronary calcifications. Status post left heart catheterization with stent placement May 02, 2018 Continue with aspirin 162 mg daily, Coreg twice daily, lisinopril 5 mg daily , statin, Effient 10 mg daily Appreciate input from cardiology Diabetes mellitus- Resume home medication and continue with sliding scale insulin Dyslipidemia- continue statin Bilateral pulmonary nodules- repeat CT scan as outpatient in 6 months. Diarrhea C. difficile PCR negative Treatment with antidiarrhea motility agent Diclofenac allergy-resolved. Hypertension- lisinopril 5 mg daily Coreg DVT prophylaxis: Heparin
--- NOTE | 2018-05-03 10:12 | P.DS ---
Date of admission: 05/02/18 10:23 Primary care physician: Tasneem Dumont Anticipated date of discharge: 05/03/18 Brief History from admission: This is a 73/M with h/o DM, hyperlipidemia who presented to the ED for chest pain. He was recently prescribed Diclofenac by his PCP which he filled yesterday. He took it prior to dinner. An hour after dinner, he started having lightheadedness, severe itching and started sweating profusely. He went to the ED, was given Benadryl. Workup was negative, symptoms resolved completely and hence patient was discharged. There was no note of chest pain at that point. Patient went home, watching TV in bed, around 11 pm, he started having pressure- like chest pain, substernal, radiating to the back between his shoulder blades, severe, about 8-9, lasted for about 2 hours, relieved by nitroglycerin given at the ED associated with pallor. No note of palpitations or SOB. Before going to the ED, he took his BP and it was 60/50. Presently, he denies any chest pain. He has a depot agent in [place]. Of note, a month ago, he had a cardiac workup with what sounds to be EKG, nuclear stress test and a treadmill stress test which were all allegedly negative. Family Hx:Brother had a massive heart attack at early 50s and . Patient smokes 3-4 cigarettes since 14 yo. DS: Diagnosis - Discharge Diagnosis (1) NSTEMI (non-ST elevated myocardial infarction) Status: Acute DS: Summary Hospital Course: While in hospital, patient was treated for: NSTEMI. CTA negative for PE, showed coronary calcifications. Status post left heart catheterization with stent placement May 02, 2018 Treated with aspirin 162 mg daily, Coreg twice daily, lisinopril 5 mg daily, statin, Effient 10 mg daily Appreciate input from cardiology Diabetes mellitus- Resume home medication and continue with sliding scale insulin Dyslipidemia- continue statin Bilateral pulmonary nodules- repeat CT scan as outpatient in 6 months. Diarrhea C. difficile PCR negative Treatment with antidiarrhea motility agent Diclofenac allergy-resolved. Hypertension- lisinopril 5 mg daily Coreg Tobacco abuse Tobacco cessation counseling were provided DVT prophylaxis: Heparin - Time Spent with Patient Total time spent providing and/or coordinating discharge services: Less than 30 minutes - Quality: VTE Deep Vein Thrombosis/Pulmonary Embolism Present on Admission: No Exam Vital signs: Vital Signs 05/02/18 11:48 05/02/18 12:00 05/02/18 13:00 Temperature 98.6 F Pulse Rate 64 78 Respiratory Rate 18 Blood Pressure 154/88 H Pulse Oximetry 93 L 93 L 05/02/18 14:00 05/02/18 15:00 05/02/18 16:00 Temperature 98.4 F Pulse Rate 84 83 74 Respiratory Rate 18 Blood Pressure 104/56 L Pulse Oximetry 93 L 05/02/18 17:00 05/02/18 18:00 05/02/18 19:00 Temperature Pulse Rate 82 82 88 Respiratory Rate Blood Pressure Pulse Oximetry 05/02/18 20:00 05/02/18 21:00 05/02/18 22:00 Temperature 99.4 F Pulse Rate 82 90 88 Respiratory Rate 22 Blood Pressure 124/63 Pulse Oximetry 96 05/02/18 23:00 05/02/18 23:16 05/03/18 00:00 Temperature 97.7 F Pulse Rate 80 92 H 82 Respiratory Rate 22 Blood Pressure 111/58 L Pulse Oximetry 94 L 05/03/18 01:00 05/03/18 02:00 05/03/18 03:00 Temperature Pulse Rate 78 76 82 Respiratory Rate Blood Pressure Pulse Oximetry 05/03/18 04:00 05/03/18 05:00 05/03/18 06:00 Temperature 98.3 F Pulse Rate 79 103 H 86 Respiratory Rate 20 Blood Pressure 87/62 L Pulse Oximetry 95 05/03/18 07:00 05/03/18 08:00 05/03/18 09:05 Temperature 98.4 F Pulse Rate 82 82 Respiratory Rate 18 Blood Pressure 123/62 Pulse Oximetry 96 95 Intake & Output 05/02/18 05/03/18 05/03/18 18:59 06:59 18:59 Intake Total 720 / 720 480 / 480 Output Total 400 / 400 925 / 925 Balance 320 / 320 -445 / -445 Weight 125.6 kg Intake: IV 240 / 240 Aggrastat Inj 12,500 mcg In 250 240 / 240 ml @ Per Protocol IV.CONT .Q0M [facility] Rx#:[id number] Oral 720 / 720 240 / 240 Output: Urine 400 / 400 925 / 925 Other: # Voids 2 Date of Last Bowel Movement 05/02/18 05/02/18 05/02/18 # Bowel Movements 2 Narrative: GENERAL: NAD SKIN: Warm and dry. HEAD: Atraumatic. Normocephalic. EYES: Pupils equal and round. No scleral icterus. No injection or drainage. ENT: No nasal bleeding or discharge. Mucous membranes pink and moist. NECK: Trachea midline. No JVD. CARDIOVASCULAR: Regular rate and rhythm. RESPIRATORY: No accessory muscle use. Clear to auscultation. Breath sounds equal bilaterally. GASTROINTESTINAL: Abdomen soft, non-tender, nondistended. Hepatic and splenic margins not palpable. MUSCULOSKELETAL: Extremities without clubbing, cyanosis, or edema. No obvious deformities. NEUROLOGICAL: Awake and alert. No obvious cranial nerve deficits. Motor grossly within normal limits. Five out of 5 muscle strength in the arms and legs. Normal speech. PSYCHIATRIC: Appropriate mood and affect; insight and judgment normal. Results Procedures completed during hospitalization: Left heart catheterization with stent placement Labs on day of discharge: Labs from last 24 hours 05/03/18 05/03/18 05/03/18 08:21 03:30 03:30 WBC 8.6 RBC 4.27 L Hgb 13.5 Hct 39.1 MCV 91.6 MCH 31.6 MCHC 34.5 RDW 13.4 Plt Count 187 MPV 8.2 Neut % (Auto) 71.2 H Lymph % (Auto) 16.4 [place] % (Auto) 8.9 H Eos % (Auto) 3.1 Baso % (Auto) 0.4 Neut # (Auto) 6.1 Lymph # (Auto) 1.4 [place] # (Auto) 0.8 Eos # (Auto) 0.3 Baso # (Auto) 0.0 WBC Differential . Differential Comment Auto diff final Sodium 139 Potassium 3.4 L Chloride 103 Carbon Dioxide 27.0 Anion Gap 9 BUN 15 Creatinine 1.00 Estimated GFR 73 L POC Glucose 327 H Random Glucose 290 H Calcium 8.2 L Total Creatine Kinase 101 Triglycerides 333 H Cholesterol 119 L LDL Cholesterol, Calc 23 HDL Cholesterol 29.4 L Cholesterol/HDL Ratio 4.04 St C. diff Tox Epid 027 C. difficile Tox (PCR) 05/02/18 05/02/18 05/02/18 22:39 19:17 12:49 WBC RBC Hgb Hct MCV MCH MCHC RDW Plt Count MPV Neut % (Auto) Lymph % (Auto) [place] % (Auto) Eos % (Auto) Baso % (Auto) Neut # (Auto) Lymph # (Auto) [place] # (Auto) Eos # (Auto) Baso # (Auto) WBC Differential Differential Comment Sodium Potassium Chloride Carbon Dioxide Anion Gap BUN Creatinine Estimated GFR POC Glucose 278 H 266 H 299 H Random Glucose Calcium Total Creatine Kinase Triglycerides Cholesterol LDL Cholesterol, Calc HDL Cholesterol Cholesterol/HDL Ratio St C. diff Tox Epid 027 C. difficile Tox (PCR) 05/02/18 08:40 WBC RBC Hgb Hct MCV MCH MCHC RDW Plt Count MPV Neut % (Auto) Lymph % (Auto) [place] % (Auto) Eos % (Auto) Baso % (Auto) Neut # (Auto) Lymph # (Auto) [place] # (Auto) Eos # (Auto) Baso # (Auto) WBC Differential Differential Comment Sodium Potassium Chloride Carbon Dioxide Anion Gap BUN Creatinine Estimated GFR POC Glucose Random Glucose Calcium Total Creatine Kinase Triglycerides Cholesterol LDL Cholesterol, Calc HDL Cholesterol Cholesterol/HDL Ratio St C. diff Tox Epid 027 Negative C. difficile Tox (PCR) Negative Discharge Plan - Discharge Disposition Patient Disposition: 01 Discharge Home - Discharge Condition Condition: Good - Physicians Team Primary Care Provider: Tasneem Dumont Attending Provider: Piotr Rodrigez Other Providers: Ajay Mathews MD - Rxs /Orders / Referrals /Forms Prescriptions: New aspirin 81 mg Tablet,Delayed Release (Dr/Ec) 162 mg PO DAILY Qty: 30 RF: 0 carvedilol [Coreg] 3.125 mg Tablet 3.125 mg PO BID Qty: 60 RF: 0 nitroglycerin [Nitrostat] 0.4 mg Tablet, Sublingual 0.4 mg Sublingual Q5M PRN (Reason: Chest Pain) Qty: 30 RF: 0 prasugrel [Effient] 10 mg Tablet 10 mg PO DAILY Qty: 30 RF: 3 Continue insulin asp prt-insulin aspart [Novolog Mix 70-30 U-100 Insuln] 100 unit/mL ( 70-30) Solution 25 unit SUB-Q BID lisinopril 5 mg Tablet 5 mg PO DAILY simvastatin 20 mg Tablet 20 mg PO QPM Referrals: Primary Care Provider [Outside] - See Instructions Tasneem Dumont MD [Primary Care Provider] - See Instructions
--- NOTE | 2018-05-03 12:10 | P.PNCA ---
Subjective Interval history: assymptomatic in nad Physical Exam Vital signs: Vital Signs 05/02/18 13:00 05/02/18 14:00 05/02/18 15:00 Temperature Pulse Rate 78 84 83 Respiratory Rate Blood Pressure Pulse Oximetry 05/02/18 16:00 05/02/18 17:00 05/02/18 18:00 Temperature 98.4 F Pulse Rate 74 82 82 Respiratory Rate 18 Blood Pressure 104/56 L Pulse Oximetry 93 L 05/02/18 19:00 05/02/18 20:00 05/02/18 21:00 Temperature 99.4 F Pulse Rate 88 82 90 Respiratory Rate 22 Blood Pressure 124/63 Pulse Oximetry 96 05/02/18 22:00 05/02/18 23:00 05/02/18 23:16 Temperature 97.7 F Pulse Rate 88 80 92 H Respiratory Rate 22 Blood Pressure 111/58 L Pulse Oximetry 94 L 05/03/18 00:00 05/03/18 01:00 05/03/18 02:00 Temperature Pulse Rate 82 78 76 Respiratory Rate Blood Pressure Pulse Oximetry 05/03/18 03:00 05/03/18 04:00 05/03/18 05:00 Temperature 98.3 F Pulse Rate 82 79 103 H Respiratory Rate 20 Blood Pressure 87/62 L Pulse Oximetry 95 05/03/18 06:00 05/03/18 07:00 05/03/18 08:00 Temperature 98.4 F Pulse Rate 86 82 82 Respiratory Rate 18 Blood Pressure 123/62 Pulse Oximetry 96 05/03/18 09:05 Temperature Pulse Rate Respiratory Rate Blood Pressure Pulse Oximetry 95 Intake & Output 05/02/18 05/03/18 05/03/18 18:59 06:59 18:59 Intake Total 720 / 720 480 / 480 Output Total 400 / 400 925 / 925 Balance 320 / 320 -445 / -445 Weight 125.6 kg Intake: IV 240 / 240 Aggrastat Inj 12,500 mcg In 250 240 / 240 ml @ Per Protocol IV.CONT .Q0M [facility] Rx#:[id number] Oral 720 / 720 240 / 240 Output: Urine 400 / 400 925 / 925 Other: # Voids 2 Date of Last Bowel Movement 05/02/18 05/02/18 05/02/18 # Bowel Movements 2 Assessment and Plan - Plan 1.) CAD - pod #1 bms rpda, assymptomatic, ok to dc from cv standpoint on aspirin , effient, pravachol, prinivil, coreg, i strongly advised the patient to discontinue tobacco and be compliant with aspirin and effient or risk life threatening stent thrombosis
[2018-05-03] MEDS ORDERED: Iohexol 350 MG/ML 100 ML Vial (for Cath Lab) IVCONTRAST ONE (12:14)
[2018-05-03] MEDS ORDERED: Iohexol 350 MG/ML 50 ML Vial (for Cath Lab) IVCONTRAST ONE (12:14)
[2018-05-03 12:20] VITALS: BP 116/55; TEMP 98.6; O2SAT 93
--- NOTE | 2018-05-03 12:29 | ECG ---
Date Performed: 05/03/2018 Time Performed: 04:54:46 PTAGE: 73 years EKG: --- Warning: Data quality may affect interpretation --- Sinus rhythm Normal ECG PREVIOUS TRACING : 05/01/2018 10.52 Since the previous tracing, no significant change noted DOCTOR: Magdalena Ace Interpretating Date/Time 05/03/2018 12:29:23
== END 2018-05-03 12:15 | disposition home or self-care (01) ==
LOC: NEPFCDU 01:50 → PHEDDLT 01:50 → HCIS 05-02 10:15
PROVIDERS: ADMIT Hospitalist; ATTEND Hospitalist